=== PATIENT | male | born 1940 | race Caucasian/White ===

== ENCOUNTER → 2018-10-08 | Outpatient (CLI) | payer MEDICARE | END | disposition home or self-care (01) | LOC: RAH 16:01 | PROVIDERS: ATTEND Internal Medicine | DX: M25.461 Effusion, right knee (principal); M17.11 Unilateral primary osteoarthritis, right knee; R91.8 Other nonspecific abnormal finding of lung field; H10.9 Unspecified conjunctivitis; M76.31 Iliotibial band syndrome, right leg | CPT/HCPCS: 71046; 73562 ==

== ENCOUNTER → 2019-11-30 | Outpatient (CLI) | payer MEDICARE | END | disposition home or self-care (01) | LOC: RAH 11:38 | PROVIDERS: ATTEND Internal Medicine | DX: M19.011 Primary osteoarthritis, right shoulder (principal); M25.511 Pain in right shoulder | CPT/HCPCS: 73030 ==

== ENCOUNTER → 2020-04-18 | Outpatient (CLI) | payer MEDICARE | END | disposition home or self-care (01) | LOC: RAH 10:46 | PROVIDERS: ATTEND Internal Medicine | DX: M75.51 Bursitis of right shoulder (principal); M25.511 Pain in right shoulder | CPT/HCPCS: 73221 ==